=== PATIENT | male | born 1935 | race Caucasian/White ===

== ENCOUNTER 2016-11-22 09:15 | Inpatient (IN) | payer OTHER ==
--- NOTE | ~2016-11-22 | EKG ---
PATIENT: JAZMÍN FRIAS UNIT #: [id number] Ventricular Rate: 75 BPM Atrial Rate: 75 BPM P-R Interval: 182 ms QRS Duration: 74 ms Q-T Interval: 390 ms QTC Calculation(Bezet): 435 ms P Raymond: 113 degrees Calculated R Raymond: -6 degrees Calculated T Raymond: 28 degrees Diagnosis Line: Normal sinus rhythm Diagnosis Line: Nonspecific ST abnormality Diagnosis Line: Abnormal ECG Diagnosis Line: When compared with ECG of 09-AUG-2010 13:30, Diagnosis Line: ST elevation now present in Inferior leads Diagnosis Line: Confirmed by CHRISTINA MURPHY MD ([id number]) on Diagnosis Line: 01/06/2017 6:59:42 AM INTERPRETING MELITON PENG
--- NOTE | ~2016-11-22 | DS ---
Unit #: [id number] #: [id number] Patient: JAZMÍN FRIAS [id number] [facility] [address] [facility]. [place], [place] [address] [id number] I MR#: [id number] NAME: JAZMÍN FRIAS ROOM: 558 Age: 81 Sex: M Admission Date: 11/22/2016 : 1935 Discharge Date: 11/24/2016 Attending Physician: Travis Thurman M.D. Primary Care Physician: Artemio Nicole M.D. DISCHARGE SUMMARY DISCHARGE DIAGNOSES 1. Acute inferior wall non-ST elevation myocardial infarction. 2. New onset angina. 3. Status post cardiac catheterization, 11/23/2016, per Dr. Thurman at [facility] that revealed the following results: a. Left normal. b. Left anterior descending artery with mild plaque in the mid left anterior descending, no more than 20% to 30%. Diagonal branch shows mild plaquing. c. Circumflex artery normal. d. Right coronary artery 99% stenosis at the junction of the proximal third and distal two-thirds with SHUBHAM flow of 3. Dominant artery. e. Normal left ventricular systolic function with ejection fraction of 55% to 60%. 4. Status post percutaneous coronary intervention with drug-eluting stent to the proximal right coronary artery. 5. Hypertension. 6. History of prostate cancer. 7. History of pituitary adenoma status post transsphenoidal removal. 8. Former smoker. DISCHARGE MEDICATIONS 1. Hydrochlorothiazide 12.5 mg daily. 2. Lipitor 80 mg q.h.s. 3. Losartan 50 mg q.h.s. 4. Multivitamin 1 tablet daily. 5. Aspirin 81 mg daily. 6. Brilinta 90 mg b.i.d. 7. Potassium chloride 40 mEq daily. 8. Nitroglycerin 0.4 mg sublingual q.5 minutes x3 p.r.n. chest pain. 9. Vitamin B complex 1 cap daily. 10. Vitamin C 1,000 mg daily. 11. Vitamin D3 - 2,000 international units daily. 12. Atenolol 25 mg daily. HOSPITAL COURSE This is an 81-year-old, very active, white male who still works a full-time job. He came to the emergency room because of chest pain with heaviness, fatigue and weakness. He was ruled in for an acute myocardial infarction where his troponin peaked at 1.54. In the emergency room he was given aspirin and started on a heparin drip per protocol. Lipid profile was obtained where the patient had good control of his cholesterol Unit #: [id number] #: [id number] Patient: JAZMÍN FRIAS T level; however, because of acute myocardial infarction, he was started on high-intensity statin with Lipitor 80 q.h.s. He was started on nitrates and continued on ARB. Because his heart rate was relatively low, no beta-chalino was started initially. He was advised to undergo cardiac catheterization, to which he agreed. The following day heart cath was done, which revealed nonobstructive disease to the LAD. The right coronary artery, which was the infarct artery, had 99% stenosis at the junction of the proximal third and distal two-thirds. Revascularization with PCI and stent was advised. The patient agreed. There was successful deployment of a 4 x 24 mm Synergy drug-eluting stent into the proximal right coronary artery that was postdilated to 4.31 mm. He was loaded with Brilinta in the cardiac catheterization and started on a daily regimen. The next day the patient feels well. He has ambulated in the hallway without any recurrent chest pain. There was development of Q waves in the inferior leads with T wave inversion in III and AVF. No ST elevation. MB index did peak at 15. He continued to do well throughout the afternoon without any problems. He is stable for discharge today. ASSESSMENT VITAL SIGNS: Blood pressure 128/75, heart rate 65, temperature 97.7. CHEST: Clear to auscultation. HEART: S1, S2. Heart sounds are normal. No murmurs. No rubs. No clicks. Regular rate and rhythm. ABDOMEN: Soft with bowel sounds present. EXTREMITIES: Without leg edema. Right radial with 4+ pulse, no hematoma or bruising. DIAGNOSTIC STUDIES LABORATORY STUDIES: Glucose 91, BUN 15, creatinine 0.7, sodium 142, potassium 4.3. CK total 229, MB index 15. CARDIOVASCULAR: Electrocardiogram - Sinus rhythm with a rate of 65 beats per minute with Q waves noted in III, AVF with T wave inversion. DISCHARGE INSTRUCTIONS 1. The patient will be discharged home today. 2. Follow up with his primary care physician in 2-4 weeks. 3. Follow up with Dr. Thurman on December 28 at 3 p.m. 4. No work until 12/01/2016 without restrictions. 5. Continue dual antiplatelet therapy with aspirin and Brilinta for one year. The cost of Brilinta is $47 for the patient, and he says it is affordable for him. He is to notify our office if he is no longer able to afford Brilinta. 6. Started on atenolol at discharge as beta-chalino. 7. On statin and ARB. Dictated by... Eugenia MarroquinPClint for Marline Rowell/layton TD: 11/25/2016 07:38 JOB #: [id number] Unit #: [id number] #: [id number] Patient: JAZMÍN FRIAS Stas DISCHARGE SUMMARY X Jose Daniel Duke APRN X DISCHARGE SUMMARY
--- NOTE | ~2016-11-22 | EKG ---
PATIENT: JAZMÍN FRIAS UNIT #: [id number] Ventricular Rate: 65 BPM Atrial Rate: 65 BPM P-R Interval: 186 ms QRS Duration: 80 ms Q-T Interval: 400 ms QTC Calculation(Bezet): 416 ms P Merrill: 49 degrees Calculated R Merrill: -9 degrees Calculated T Merrill: -22 degrees Diagnosis Line: Normal sinus rhythm Diagnosis Line: Moderate voltage criteria for LVH, may be normal Diagnosis Line: variant Diagnosis Line: Inferior infarct , age undetermined Diagnosis Line: Abnormal ECG Diagnosis Line: When compared with ECG of 23-NOV-2016 06:30, Diagnosis Line: (unconfirmed) Diagnosis Line: Inferior infarct is now Present Diagnosis Line: Nonspecific T wave abnormality now evident in Diagnosis Line: Lateral leads Diagnosis Line: Confirmed by MARC CONTRERAS, LORELEI ([id number]) on 11/24/2016 Diagnosis Line: 7:18:27 AM INTERPRETING MD: MARC CONTRERAS
--- NOTE | ~2016-11-22 | EKG ---
PATIENT: JAZMÍN FRIAS UNIT #: [id number] Ventricular Rate: 67 BPM Atrial Rate: 67 BPM P-R Interval: 188 ms QRS Duration: 72 ms Q-T Interval: 416 ms QTC Calculation(Bezet): 439 ms P [place]: 14 degrees Calculated R [place]: -3 degrees Calculated T [place]: 15 degrees Diagnosis Line: Normal sinus rhythm Diagnosis Line: Normal ECG Diagnosis Line: When compared with ECG of 22-NOV-2016 08:44, Diagnosis Line: (unconfirmed) Diagnosis Line: No significant change was found Diagnosis Line: Confirmed by CHRISTINA MURPHY MD ([id number]) on Diagnosis Line: 01/06/2017 6:59:46 AM INTERPRETING : GINETTE
--- NOTE | ~2016-11-22 | EKG ---
PATIENT: JAZMÍN FRIAS UNIT #: [id number] Ventricular Rate: 67 BPM Atrial Rate: 67 BPM P-R Interval: 194 ms QRS Duration: 78 ms Q-T Interval: 406 ms QTC Calculation(Bezet): 429 ms P [place]: 43 degrees Calculated R [place]: -2 degrees Calculated T [place]: -5 degrees Diagnosis Line: Normal sinus rhythm Diagnosis Line: Normal ECG Diagnosis Line: When compared with ECG of 22-NOV-2016 12:44, Diagnosis Line: (unconfirmed) Diagnosis Line: No significant change was found Diagnosis Line: Confirmed by LORELEI TRAN MD ([id number]) on 11/24/2016 Diagnosis Line: 7:13:18 AM INTERPRETING MD: MARC CONTRERAS
--- NOTE | ~2016-11-22 | CR72 ---
[facility]. [facility] A Service of [facility] & [facility] RADIOLOGY TEXT RESULTS PATIENT: JAZMÍN FRIAS LOCATION: [facility] [address] : [birth year] UNIT #: [id number] AGE: [address]: Travis Thurman MD SEX: M ORDER DR: [id number] [place] [id number] I MR#: [id number] Acc #: [id number] NAME: JAZMÍN FRIAS. : 1935 SEX: M STUDY DATE/TIME: 11/22/2016 9:04 UNIT: SEDOF ROOM: [facility] STUDY DESCRIPTION: CR Chest Single View Portable Attending Physician: Travis Thurman M.D. Ordering Physician: Main [id number] Karen Jones Primary Care Physician: Artemio Nicole M.D. MEDICAL IMAGING REPORT This report is preliminary unless electronic signature is present. INDICATIONS Chest pain for 1 hour. Hypertension. EXAM Single portable AP view of the chest compared to chest radiograph dated 08/20/2015. FINDINGS The heart and mediastinal contours are unchanged. Lung volumes are low. No focal airspace opacity. No pneumothorax or pleural effusion. IMPRESSION 1. Low lung volumes, however no new findings. Dictated by... Bam Dawson M.D. THIS IS AN ELECTRONICALLY VERIFIED REPORT Bam Dawson M.D. at 11/23/2016 8:18 AM THOMAS/delma TD: 11/22/2016 15:06 JOB #: [id number] MEDICAL IMAGING REPORT
--- NOTE | ~2016-11-22 | EKG ---
PATIENT: JAZMÍN FRIAS UNIT #: [id number] Ventricular Rate: 61 BPM Atrial Rate: 61 BPM P-R Interval: 168 ms QRS Duration: 74 ms Q-T Interval: 432 ms QTC Calculation(Bezet): 434 ms P [place]: -19 degrees Calculated R [place]: -5 degrees Calculated T [place]: 4 degrees Diagnosis Line: Normal sinus rhythm Diagnosis Line: Normal ECG Diagnosis Line: When compared with ECG of 22-NOV-2016 09:28, Diagnosis Line: (unconfirmed) Diagnosis Line: No significant change was found Diagnosis Line: Confirmed by CHRISTINA MURPHY MD ([id number]) on Diagnosis Line: 01/06/2017 7:00:22 AM INTERPRETING : GINETTE
--- NOTE | ~2016-11-22 | HP ---
Unit #: [id number] #: [id number] Patient: JAZMÍN ROSEN [id number] [facility] [address] [facility] [place], [place] [address] [id number] I MR#: [id number] NAME: JAZMÍN ROSEN ROOM: 558 Age: 81 Sex: M Admission Date: 11/22/2016 : 1935 Attending Physician: Travis Thurman M.D. Primary Care Physician: Artemio Nicole M.D. HISTORY AND PHYSICAL REASON FOR ADMISSION Chest pain. HISTORY Mr. 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 Yesterday in the morning he went to caodaism, came home and was doing some yard work when he started complaining of a low retrosternal chest discomfort described as pressure and heaviness, accompanied by just a feeling of weakness and fatigue that he was not used to. He sat down to rest and it took 30 minutes before the pains were relieved, only to recur when he moved around in the yard again. He went to sleep, had a comfortable night but at 6:30 a.m. after having had a cup of coffee and breakfast he went to work but soon thereafter started to complain of a low retrosternal chest discomfort without any radiation to the neck, back, jaw or the elbow. There was no associated diaphoresis, dyspnea, nausea or vomiting but he called his to fetch him and take him to the emergency room. In the [facility] emergency room he was noted to have T-wave abnormalities in inferior leads, was given sublingual nitroglycerin and started on intravenous heparin drip. Chest pain subsided in about 10 to 15 minutes and he was transferred to [facility] for further evaluation. Patient has never had similar pains before. He had considered himself reasonably active. PAST MEDICAL HISTORY Past medical history is significant for: 1. Hypertension. 2. There is no history of diabetes mellitus or hyperlipidemia. PAST SURGICAL HISTORY 1. Patient underwent transsphenoidal removal of pituitary adenoma by Dr. Mackay and has heart disease three procedures performed. The last procedure done a year ago. 2. Prostate carcinoma. Details are not known. SOCIAL AND PERSONAL HISTORY History of smoking 40 years ago and did not abuse alcohol. FAMILY HISTORY One sister who is a diabetic has undergone five vessel bypass surgery in the past and is now 76 years of age. His mother had diabetes and heart disease, the nature of which is not known to him. Unit #: [id number] #: [id number] Patient: JAZMÍN ROSEN PHYSICAL EXAMINATION GENERAL: Physical examination reveals an elderly, 81-year-old white male, well preserved for his age, is in no acute cardiorespiratory distress. NECK: Both carotids have a normal upstroke without any bruits. EXTREMITIES: There is no ankle edema. Posterior tibialis pulses are bilaterally equal and normal. CARDIAC: Exam shows apical impulse is normal, both heart sounds are normal, no rubs or clicks are audible, there is no murmur. CHEST: Examination shows good air entry bilaterally without rales or rhonchi. ABDOMEN: Abdominal examination shows no hepatosplenomegaly, free fluid or masses. ANO-RECTAL: Examination is not done. INTERIOR PAINTER: Examination is within normal limits. DIAGNOSTIC STUDIES LABORATORY: Serum troponin level at [facility] was 0.4. Potassium was 3.4, chloride 100, sodium 137, creatinine 0.8, BUN of 18, GFR greater than 60. Liver function studies are normal. Lipid profile is awaited. Hemoglobin is 13.6, hematocrit 33.5 and 6500 white cells are seen with a normal differential. CARDIOVASCULAR: EKG done showed normal sinus rhythm, inferior wall myocardial infarction age undetermined, may be recent, no acute ischemic changes were noted. IMAGING: Chest x-ray report is awaited. DIAGNOSES 1. New onset angina pectoris. 2. Probable non-ST elevation myocardial infarction, old inferior wall myocardial infarction cannot be excluded. 3. History of hypertension, now controlled. 4. History of prostate cancer. 5. History of transsphenoidal removal of pituitary adenoma. PLAN 1. Patient is being started on long acting nitrates, aspirin, Lipitor, heparin and he will be continued on Cozaar 50 mg daily. 2. Potassium supplement would be added. 3. He is advised to consider a cardiac catheterization to which he agrees. Catheterization is planned for 10:00 a.m. tomorrow morning. Procedure and risks were discussed with the patient and his family in detail and he is agreeable to proceed. Dictated by Marline Rowell/deonna TD: 11/22/2016 20:19 JOB #: [id number] Unit #: [id number] #: [id number] Patient: JAZMÍN ROSEN HISTORY AND PHYSICAL X Travis Thurman MD HISTORY AND PHYSICAL
[2016-11-22 09:02] LABS: BASOPHIL% 0.3 % (0-2.5); EOSINOPHIL# 0.1 X10e3 (0-0.7); EOSINOPHIL% 1.4 % (0.0-7.0); HEMATOCRIT 43.5 % (38.0-50.0); HEMOGLOBIN 14.6 gm/dL (13.0-16.0); LYMPHOCYTE# 1.6 X10e3 (1.0-3.5); LYMPHOCYTE% 24.9 % (17.0-45.0); MEAN CELL VOLUME 91.6 FL (83-96); MEAN CORPUSCULAR HEMOGLOBIN 30.7 PG (28-34); MEAN CORPUSCULAR HGB CONC 33.5 g/dL (30-36); MONOCYTE# 0.7 X10e3 (0-1.0); MONOCYTE% 10.1 % (3.0-12.0); NEUTROPHIL# 4.1 X10e3 (1.5-7.1); NEUTROPHIL% 63.3 % (40-75); PLATELET COUNT 188 X10e3 (140-420); RED BLOOD COUNT 4.75 X10e (3.90-5.60); RED CELL DISTRIBUTION WIDTH 13.6 % (11.0-15.5); WHITE BLOOD COUNT 6.5 X10e3 (4.0-10.5)
[2016-11-22 09:04] LABS: DIFF IND NO
[~2016-11-22 09:15] MED LIST: ANTIVERT PO; COZAAR100 MG PO; HCTZ PO; HYDROCODON-ACE1 EACH PO; KCL PO; MULTI-DAY VITAM1 TAB; VITAL-D RX TABL1 TAB
[2016-11-22 09:22] LABS: INR 1.1; PROTHROMBIN TIME (PATIENT) 12.2 SECONDS (9.5-12.4)
[2016-11-22 09:23] LABS: ALBUMIN SERUM 4.2 g/dL (3.5-5.0); ALKALINE PHOSPHATASE 77 U/L (32-92); ALT (SGPT) 22 U/L (10-40); AST (SGOT) 28 U/L (10-42); BILIRUBIN, DIRECT 0.1 mg/dL (0.0-0.2); BILIRUBIN,INDIRECT 0.9 mg/dL (0.0-0.9); BLOOD UREA NITROGEN 18 mg/dL (9-23); CALCIUM SERUM 9.1 mg/dL (8.4-10.2); CARBON DIOXIDE 27 mmol/L (22-31); CHLORIDE 100 mmol/L (100-111); CREATININE SERUM 0.8 mg/dL (0.6-1.4); GLOM FILT RATE Estimated ABOVE60 mL/min (>60); GLUCOSE FASTING 110 mg/dL (70-110); POTASSIUM 3.4 mmol/L (3.5-5.1); PROTEIN TOTAL SERUM 7.5 g/dL (6.0-8.3); SODIUM 137 mmol/L (135-145)
[2016-11-22 09:29] LABS: PARTIAL THROMBOPLASTIN TIME 34.1 SECONDS (25.6-38.1)
[2016-11-22 09:52] LABS: POC - CKMB 6.9 ng/mL (0.0-7.9); POC - TROPONIN 0.25 ng/mL (<=0.05)
[2016-11-22 11:08] LABS: POC - CKMB 6.7 ng/mL (0.0-7.9); POC - TROPONIN 0.4 ng/mL (<=0.05)
[2016-11-22] MEDS ORDERED: D3 + K2 DOTS 1,1 TAB PO (18:02)
[2016-11-22] MEDS ORDERED: VITAMIN C1000 M2 PO (18:02)
[2016-11-22] MEDS ORDERED: MULTI-VITAMIN1 EAC1 PO (18:03)
[2016-11-22] MEDS ORDERED: SUPER B COMPLEX1 CAP PO (18:04)
[2016-11-22 23:56] LABS: %MB 9.1 % (0.0-4.0); MB 15.3 ng/ml
[2016-11-23 05:33] LABS: HEMATOCRIT 41.8 % (38.0-50.0); MEAN CELL VOLUME 91.9 FL (83-96); MEAN CORPUSCULAR HEMOGLOBIN 30.9 PG (28-34); MEAN CORPUSCULAR HGB CONC 33.6 g/dL (30-36); RED BLOOD COUNT 4.55 X10e (3.90-5.60); WHITE BLOOD COUNT 6.9 X10e3 (4.0-10.5)
[2016-11-23 05:50] LABS: PARTIAL THROMBOPLASTIN TIME 60.5 SECONDS (23.5-31.3); PROTHROMBIN TIME (PATIENT) 10.9 SECONDS (9.6-11.5)
[2016-11-23 07:13] LABS: BLOOD UREA NITROGEN 21 mg/dL (9-23); CALCIUM SERUM 9.3 mg/dL (8.4-10.2); CARBON DIOXIDE 27 mmol/L (22-31); CHLORIDE 104 mmol/L (100-111); CHOLESTEROL 179 mg/dL (0-200); CK TOTAL 135 IU/L (36-174); GLOM FILT RATE Estimated ABOVE60 mL/min (>60); GLUCOSE FASTING 95 mg/dL (70-110); HDL CHOLESTEROL 49 mg/dL (29-75); LDL CHOLESTEROL 117 mg/dL (-130); LDL/HDL RATIO 2 RATIO (0-4); POTASSIUM 4.2 mmol/L (3.5-5.1); SODIUM 142 mmol/L (135-145); TRIGLYCERIDES 63 mg/dL (10-160)
[2016-11-23 07:39] LABS: %MB 7.9 % (0.0-4.0); MB 10.6 ng/ml
[2016-11-23 20:53] LABS: ANGIO %MB 10.6 % (0.0-4.0); ANGIO MB 14.3 ng/ml
[2016-11-24 06:07] LABS: ANGIO MB 34.4 ng/ml
[2016-11-24 07:08] LABS: BLOOD UREA NITROGEN 16 mg/dL (9-23); BUN/CREATININE RATIO 22.85; CALCIUM SERUM 9.3 mg/dL (8.4-10.2); CARBON DIOXIDE 26 mmol/L (22-31); CHLORIDE 106 mmol/L (100-111); CHOLESTEROL 150 mg/dL (0-200); CREATININE SERUM 0.7 mg/dL (0.6-1.4); GLOM FILT RATE Estimated ABOVE60 mL/min (>60); GLUCOSE FASTING 91 mg/dL (70-110); HDL CHOLESTEROL 48 mg/dL (29-75); LDL CHOLESTEROL 89 mg/dL (-130); LDL/HDL RATIO 2 RATIO (0-4); POTASSIUM 4.3 mmol/L (3.5-5.1); SODIUM 142 mmol/L (135-145); TRIGLYCERIDES 64 mg/dL (10-160)
[2016-11-24] MEDS ORDERED: ASPIRIN81 MG PO (14:31)
[2016-11-24] MEDS ORDERED: LIPITOR80 MG PO (14:31)
[2016-11-24] MEDS ORDERED: BRILINTA90 MG PO (14:32)
[2016-11-24] MEDS ORDERED: KCL PO (14:33)
[2016-11-24] MEDS ORDERED: NITROGLYCERIN0.4 MG (14:35)
[2016-11-24] MEDS ORDERED: TENORMIN25 MG PO (14:36)
== END 2016-11-24 15:22 | disposition home or self-care (01) | DRG 247 ==
LOC: SED 09:15 → CEDOF 13:01 → SEDOF 16:28 → CEDOF 16:30 → C5B 16:47
PROVIDERS: Emergency Medicine; Internal Medicine Cardiovascular Disease
PROC: 4A023N7 Measurement of Cardiac Sampling and Pressure, Left Heart, Percutaneous Approach (ICD-10-PCS; principal; 2016-11-23)
PROC: 027034Z Dilation of Coronary Artery, One Artery with Drug-eluting Intraluminal Device, Percutaneous Approach (ICD-10-PCS; 2016-11-23)
PROC: B211YZZ Fluoroscopy of Multiple Coronary Arteries using Other Contrast (ICD-10-PCS; 2016-11-23)
PROC: B215YZZ Fluoroscopy of Left Heart using Other Contrast (ICD-10-PCS; 2016-11-23)
DX: I21.4 Non-ST elevation (NSTEMI) myocardial infarction (principal); I10 Essential (primary) hypertension; Z87.891 Personal history of nicotine dependence; I25.119 Atherosclerotic heart disease of native coronary artery with unspecified angina pectoris; Z85.46 Personal history of malignant neoplasm of prostate
CPT/HCPCS: 36415; 71010; 80048; 80061; 80076; 82550; 82553; 83874; 84484; 85025; 85027; 85347; 85610; 85730; 93005; 99291; C1725; C1769; C1874; C1887; C1894; J1644; J2250; J2270; J3010